=== PATIENT | male | born 1990 | race Caucasian/White ===

== ENCOUNTER 2022-07-06 13:57 | Emergency (ER) | payer SELFPAY ==
--- NOTE | 2022-07-06 14:14 | EDPHYS ---
Physician Documentation [facility] Name: Gregorio Fitzgerald Age: 31 yrs Sex: Male : 1990 Arrival Date: 07/06/2022 Time: 14:00 Bed Waiting Private MD: ED Physician Federico Barker HPI: 07/06 14:10 This 31 yrs old Male presents to ER via Unassigned with complaints of Rash. jl9 14:10 The patient's rash thought to be caused by Patient picked up fiberglass yesterday, jl9 possible allergy. The rash is located on the right arm and left arm. The rash can be described as erythematous, urticarial. Onset: The symptoms/episode began/occurred yesterday. Treatment given at home: OTC lotion/cream. Historical: - Allergies: 14:12 No Known Allergies; kb3 - Home Meds: 14:12 Methadone 100 mg Oral 1 wafer 1 week for opioid dependence [Active]; melatonin 10 mg kb3 oral tab 20 mg nightly [Active]; - PMHx: 14:12 Opiod Dependence; kb3 - PSHx: 14:12 None; kb3 - Immunization history:: Adult Immunizations up to date, Client reports receiving the 2nd dose of the Covid vaccine, Last tetanus immunization: up to date. - Social history:: Smoking status: Patient reports the use of cigarette tobacco products, smokes one-half pack cigarettes per day, Patient/guardian denies using alcohol, street drugs. ROS: 14:11 Constitutional: Negative for fever, chills, and weight loss, Eyes: Negative for injury, jl9 pain, redness, and discharge, ENT: Negative for injury, pain, and discharge, Neck: Negative for injury, pain, and swelling, Cardiovascular: Negative for chest pain, palpitations, and edema, Respiratory: Negative for shortness of breath, cough, wheezing, and pleuritic chest pain, Abdomen/GI: Negative for abdominal pain, nausea, vomiting, diarrhea, and constipation, Back: Negative for injury and pain, : Negative for injury, bleeding, discharge, and swelling, MS/Extremity: Negative for injury and deformity. 14:11 Neuro: Negative for headache, weakness, numbness, tingling, and seizure, Psych: Negative for depression, anxiety, suicide ideation, homicidal ideation, and hallucinations, Allergy/Immunology: Negative for hives, rash, and allergies, Endocrine: Negative for neck swelling, polydipsia, polyuria, polyphagia, and marked weight changes, Hematologic/Lymphatic: Negative for swollen nodes, abnormal bleeding, and unusual bruising. 14:11 Skin: Positive for rash. Exam: 14:11 Constitutional: This is a well developed, well nourished patient who is awake, alert, jl9 and in no acute distress. Head/Face: Normocephalic, atraumatic. Eyes: Pupils equal round and reactive to light, extra-ocular motions intact. Lids and lashes normal. Conjunctiva and sclera are non-icteric and not injected. Cornea within normal limits. Periorbital areas with no swelling, redness, or edema. ENT: Mucous membranes moist. Neck: Trachea midline, no thyromegaly or masses palpated, and no cervical lymphadenopathy. Supple, full range of motion without nuchal rigidity, or vertebral point tenderness. No Meningismus. Chest/axilla: Normal chest wall appearance and motion. Nontender with no deformity. No lesions are appreciated. Cardiovascular: Regular rate and rhythm with a normal S1 and S2. No gallops, murmurs, or rubs. Normal PMI, no JVD. No pulse deficits. Respiratory: Lungs have equal breath sounds bilaterally, clear to auscultation and percussion. No rales, rhonchi or wheezes noted. No increased work of breathing, no retractions or nasal flaring. Abdomen/GI: Soft, non-tender, with normal bowel sounds. No distension or tympany. No guarding or rebound. No evidence of tenderness throughout. Back: No spinal tenderness. No costovertebral tenderness. Full range of motion. 14:11 Skin: Appearance: on the right arm and left arm. 14:12 MS/ Extremity: Pulses equal, no cyanosis. Neurovascular intact. Full, normal range jl9 of motion. Neuro: Awake and alert, GCS 15, oriented to person, place, time, and situation. Cranial nerves II-XII grossly intact. Motor strength 5/5 in all extremities. Sensory grossly intact. Cerebellar exam normal. Normal gait. Psych: Awake, alert, with orientation to person, place and time. Behavior, mood, and affect are within normal limits. Vital Signs: 14:10 BP 135 / 82; Pulse 90; Resp 18; Temp 98.8; Pulse Ox 95% ; Weight 140.61 kg; Height 5 kb3 ft. 11 in. (180.34 cm); Pain 0/10; 14:10 Body Mass Index 43.24 (140.61 kg, 180.34 cm) kb3 MDM: 14:07 Patient medically screened. 9 14:12 Differential diagnosis: impetigo, allergic reaction. Data reviewed: vital signs, nurses jl9 notes. 14:12 Counseling: I had a detailed discussion with the patient and/or guardian regarding: the 9 historical points, exam findings, and any diagnostic results supporting the discharge/admit diagnosis, the need for outpatient follow up, to return to the emergency department if symptoms worsen or persist or if there are any questions or concerns that arise at home. Administered Medications: 14:18 CANCELLED (Duplicate Order): Benadryl (diphenhydrAMINE) 50 mg IVP once jl9 14:25 Drug: Benadryl (diphenhydrAMINE) 50 mg Route: IM; Site: left deltoid; kb3 14:30 Follow up: Response: No adverse reaction kb3 14:25 Not Given (Duplicate Order): Benadryl (diphenhydrAMINE) 50 mg IM once kb3 14:26 Drug: MethylPREDNISolone Sodium Succinate 125 mg Route: IM; Site: right deltoid; kb3 14:30 Follow up: Response: No adverse reaction kb3 Disposition: 16:31 Co-signature as Attending Physician, Federico Barker MD. rn Disposition Summary: 07/06/22 14:13 Discharge Ordered Location: Home jl9 Condition: Stable jl9 Diagnosis - Allergic contact dermatitis due to other agents jl9 Followup: jl9 - With: Private Physician - When: 1 - 2 days - Reason: Recheck today's complaints, Continuance of care, Re-evaluation by your physician Discharge Instructions: - Discharge Summary Sheet jl9 - Rash, Adult, [id number] jl9 - Contact Dermatitis, [id number] jl9 Forms: - Medication Reconciliation Form jl9 - Thank You Letter jl9 - Antibiotic Education jl9 - Prescription Opioid Use jl9 - Work release form kb3 Prescriptions: - Triamcinolone Acetonide 0.5 % Topical Cream - apply 1 application by TOPICAL route 2 times per day As needed; 1 tube; jl9 Refills: 0, Product Selection Permitted - Prednisone 20 mg Oral Tablet - take 2 tablets by ORAL route once daily for 5 days; 10 tablet; Refills: 0, jl9 Product Selection Permitted Signatures: Federico Barker MD MD rn Linares, John jl9 Bhargavi Rizvi RN RN kb3 Corrections: (The following items were deleted from the chart) 14:18 14:10 Benadryl (diphenhydrAMINE) 50 mg IVP once ordered. jl9 jl9
--- NOTE | 2022-07-06 14:14 | ER ---
Nurse's Notes [facility] Name: Gregorio Fitzgerald Age: 31 yrs Sex: Male : 1990 Arrival Date: 07/06/2022 Time: 14:00 Bed Waiting Private MD: Diagnosis: Allergic contact dermatitis due to other agents Presentation: 07/06 14:10 Chief complaint: Patient states: Pt report he came into [employer] yesterday at work kb3 and now has a rash on bilateral forearms. Coronavirus screen: Vaccine status: Patient reports receiving the 2nd dose of the covid vaccine. Client denies travel out of the [place] in the last 14 days. At this time, the client does not indicate any symptoms associated with coronavirus-19. Ebola Screen: Patient negative for fever greater than or equal to 101.5 degrees Fahrenheit, and additional compatible Ebola Virus Disease symptoms Patient denies exposure to infectious person. Patient denies travel to an Ebola-affected area in the 21 days before illness onset. No symptoms or risks identified at this time. Initial Sepsis Screen: Does the patient meet any 2 criteria? No. Patient's initial sepsis screen is negative. Does the patient have a suspected source of infection? No. Patient's initial sepsis screen is negative. Risk Assessment: Do you want to hurt yourself or someone else? Patient reports no desire to harm self or others. Onset of symptoms was July 05, 2022 at 12:00. 14:10 Method Of Arrival: Ambulatory kb3 14:10 Acuity: GERARDO 4 kb3 Triage Assessment: 14:12 General: Appears in no apparent distress. comfortable, Behavior is calm, cooperative. kb3 Pain: Denies pain. Historical: - Allergies: 14:12 No Known Allergies; kb3 - Home Meds: 14:12 Methadone 100 mg Oral 1 wafer 1 week for opioid dependence [Active]; melatonin 10 mg kb3 oral tab 20 mg nightly [Active]; - PMHx: 14:12 Opiod Dependence; kb3 - PSHx: 14:12 None; kb3 - Immunization history:: Adult Immunizations up to date, Client reports receiving the 2nd dose of the Covid vaccine, Last tetanus immunization: up to date. - Social history:: Smoking status: Patient reports the use of cigarette tobacco products, smokes one-half pack cigarettes per day, Patient/guardian denies using alcohol, street drugs. Screenin:10 Abuse screen: Denies threats or abuse. Denies injuries from another. Nutritional kb3 screening: No deficits noted. Tuberculosis screening: No symptoms or risk factors identified. Fall Risk None identified. Assessment: 14:10 General: Pt seen by provider in triage. kb3 Vital Signs: 14:10 BP 135 / 82; Pulse 90; Resp 18; Temp 98.8; Pulse Ox 95% ; Weight 140.61 kg; Height 5 kb3 ft. 11 in. (180.34 cm); Pain 0/10; 14:10 Body Mass Index 43.24 (140.61 kg, 180.34 cm) kb3 ED Course: 14:00 Patient arrived in ED. rg4 14:07 Herman Linda is PHCP. jl9 14:07 Federico Barker MD is Attending Physician. jl9 14:10 Patient has correct armband on for positive identification. kb3 14:10 No provider procedures requiring assistance completed. Patient did not have IV access kb3 during this emergency room visit. 14:12 Triage completed. kb3 14:12 Arm band placed on right wrist. kb3 14:15 Bhargavi Rizvi, RN is Primary Nurse. kb3 Administered Medications: 14:18 CANCELLED (Duplicate Order): Benadryl (diphenhydrAMINE) 50 mg IVP once jl9 14:25 Drug: Benadryl (diphenhydrAMINE) 50 mg Route: IM; Site: left deltoid; kb3 14:30 Follow up: Response: No adverse reaction kb3 14:25 Not Given (Duplicate Order): Benadryl (diphenhydrAMINE) 50 mg IM once kb3 14:26 Drug: MethylPREDNISolone Sodium Succinate 125 mg Route: IM; Site: right deltoid; kb3 14:30 Follow up: Response: No adverse reaction kb3 Medication: 14:10 VIS not applicable for this client. kb3 Outcome: 14:13 Discharge ordered by . jl9 14:30 Patient left the ED. kb3 Signatures: Janelle Gaming rgHerman Dorantes jl9 Bhargavi Rizvi, RN RN kb3
[2022-07-06] MEDS ORDERED: DIPHENHYDRAMINE 50 MG/ML VIAL ONE (14:27)
[2022-07-06] MEDS ORDERED: METHYLPREDNISOLONE 125 MG INJ ONE (14:27)
[2022-07-06 14:52] VITALS: BP 135/82; TEMP 98.8; O2SAT 95
== END 2022-07-06 14:30 | disposition home or self-care (01) ==
LOC: ER 13:57
DX: L23.89 Allergic contact dermatitis due to other agents (principal); F17.210 Nicotine dependence, cigarettes, uncomplicated
CPT/HCPCS: 96372; 99282; J1200; J2930

== ENCOUNTER 2022-07-10 08:09 | Emergency (ER) | payer SELFPAY ==
--- OUTSIDE RECORDS SUMMARY | 2022-07-10 08:18 | XMS REPORT | Continuity of Care Document ---
:1990 Author Organization [facility] t Address [address] [place] [address] Care Team Providers Name Role Phone Mary Jane Sevilla Attending Clinician Unavailable Problems This patient has no known problems. Allergies, Adverse Reactions, Alerts This patient has no known allergies or adverse reactions. Medications This patient has no known medications. Procedures This patient has no known procedures. Encounters Start End Encounter Admission Attending Care Care Encounter Source Date/Time Date/Time Type Type Clinicians Facility Department ID 2022-01-12 Outpatient Di, [facility] [id number] Common 16:21:01 Mary Jane [id number] [facility] 2021-12-10 Outpatient Di, [facility] [id number] Common 14:00:29 Mary Jane [id number] [facility] 2021-12-10 Outpatient Di, [facility] [id number] Common 12:11:15 Mary Jane [id number] [facility] 2021-12-10 Outpatient Di, [facility] [id number] Common 12:11:00 Mary Jane [id number] [facility] 2021-12-10 Outpatient [facility] [id number] Common 11:32:48 [id number] [facility] Results This patient has no known results.
--- NOTE | 2022-07-10 09:00 | ER ---
Nurse's Notes [facility] Name: Gregorio Fitzgerald Age: 31 yrs Sex: Male : 1990 Arrival Date: 07/10/2022 Time: 08:34 Bed 11 Private MD: Diagnosis: Blister (nonthermal) of foot-bilateral Presentation: 07/10 08:39 Chief complaint: Patient states: wore a new pair of boots yesterday at work, walked 9 iw hours, now he has blisters on bottom of feet , was seen limping at work and was sent for clearance. Coronavirus screen: At this time, the client does not indicate any symptoms associated with coronavirus-19. Ebola Screen: Patient negative for fever greater than or equal to 101.5 degrees Fahrenheit, and additional compatible Ebola Virus Disease symptoms Patient denies exposure to infectious person. Patient denies travel to an Ebola-affected area in the 21 days before illness onset. No symptoms or risks identified at this time. Initial Sepsis Screen: Does the patient meet any 2 criteria? No. Patient's initial sepsis screen is negative. Does the patient have a suspected source of infection? No. Patient's initial sepsis screen is negative. Risk Assessment: Do you want to hurt yourself or someone else? Patient reports no desire to harm self or others. Onset of symptoms was July 10, 2022. 08:39 Method Of Arrival: Ambulatory iw 08:39 Acuity: GERARDO 4 iw Historical: - Allergies: 08:41 No Known Allergies; iw - Home Meds: 08:41 Methadone 100 mg Oral 1 wafer 1 week for Opioid Dependence [Active]; melatonin 10 mg iw Oral tab 20 mg nightly [Active]; - PMHx: 08:41 opiod dependence; iw - PSHx: 08:41 None; iw Vital Signs: 08:39 BP 129 / 83; Pulse 105; Resp 18; Temp 97.9; Pulse Ox 96% on R/A; iw ED Course: 08:34 Patient arrived in ED. as 08:36 Gomez Galan PA is PHCP. cp 08:36 Cale Harrison MD is Attending Physician. cp 08:41 Triage completed. iw 08:41 Arm band placed on. iw 08:46 Rachele Servin, AYAZ is Primary Nurse. iw Administered Medications: No medications were administered Outcome: 08:59 Discharge ordered by . cp 09:33 Patient left the ED. iw Signatures: Bridget Sprague Irene, RN RN iw Gomez Galan PA PA cp
--- NOTE | 2022-07-10 09:00 | EDPHYS ---
Physician Documentation [facility] Name: Gregorio Fitzgerald Age: 31 yrs Sex: Male : 1990 Arrival Date: 07/10/2022 Time: 08:34 Bed 11 Private MD: ED Physician Cale Harrison HPI: 07/10 08:54 This 31 yrs old Male presents to ER via Ambulatory with complaints of Foot Pain - cp blisters. 08:54 The patient presents with tenderness, skin blisters. The complaints affect the right cp foot and left foot. Context: resulted from walking previous day, the patient can fully bear weight, the patient is able to ambulate, without difficulty. Onset: The symptoms/episode began/occurred yesterday. Associated signs and symptoms: The patient has no apparent associated signs or symptoms. Treatment prior to arrival includes: no previous treatment. Historical: - Allergies: 08:41 No Known Allergies; iw - Home Meds: 08:41 Methadone 100 mg Oral 1 wafer 1 week for Opioid Dependence [Active]; melatonin 10 mg iw Oral tab 20 mg nightly [Active]; - PMHx: 08:41 opiod dependence; iw - PSHx: 08:41 None; iw ROS: 08:55 Constitutional: Negative for fever. cp 08:55 Cardiovascular: Negative for chest pain. 08:55 Respiratory: Negative for cough, shortness of breath, wheezing. 08:55 Abdomen/GI: Negative for abdominal pain, nausea, vomiting, and diarrhea. 08:55 Skin: Positive for of the right foot and left foot, skin blisters. 08:55 All other systems are negative. Exam: 08:56 Constitutional: The patient appears in no acute distress, alert, awake, non-toxic, well cp developed, well nourished, obese. 08:56 Cardiovascular: Rate: tachycardic. 08:56 Respiratory: the patient does not display signs of respiratory distress, Respirations: normal, no use of accessory muscles, no retractions. 08:56 Skin: injury, multiple ruptured bullae noted to feet. Vital Signs: 08:39 BP 129 / 83; Pulse 105; Resp 18; Temp 97.9; Pulse Ox 96% on R/A; iw MDM: 08:42 Patient medically screened. cp 08:45 Differential diagnosis: cellulitis, abscess. cp 08:59 Data reviewed: vital signs, nurses notes. cp 08:59 Counseling: I had a detailed discussion with the patient and/or guardian regarding: the cp historical points, exam findings, and any diagnostic results supporting the discharge/admit diagnosis, the need for outpatient follow up, a family practitioner, to return to the emergency department if symptoms worsen or persist or if there are any questions or concerns that arise at home. 07/10 08:58 Order name: Wound dressing: bacitracin cp Administered Medications: No medications were administered Disposition: 11:18 Co-signature as Attending Physician, Cale Harrison MD I agree with the assessment and kdr plan of care. Disposition Summary: 07/10/22 08:59 Discharge Ordered Location: Home cp Problem: new cp Symptoms: have improved cp Condition: Stable cp Diagnosis - Blister (nonthermal) of foot - bilateral cp Followup: cp - With: Private Physician - When: 2 - 3 days - Reason: Recheck today's complaints Discharge Instructions: - Discharge Summary Sheet cp - Blisters, Adult cp - Form - Excuse from Work, School, or Physical Activity cp Forms: - Medication Reconciliation Form cp - Thank You Letter cp - Antibiotic Education cp - Prescription Opioid Use cp - Work release form eb Prescriptions: - mupirocin 2 % Topical ointment - apply 1 application by TOPICAL route 3 times per day for 8-10 days; 45 gram; cp Refills: 0, Product Selection Permitted Signatures: Cale Harrison MD MD kdr Williams, Irene, AYAZ RN Gomez Rojas PA PA cp
[2022-07-10 10:24] VITALS: BP 129/83; TEMP 97.9; O2SAT 96
[2022-07-10] MEDS ORDERED: KETOROLAC 30 MG/ML INJ ONE (11:25)
== END 2022-07-10 09:33 | disposition home or self-care (01) ==
LOC: ER 08:09
DX: S90.822A Blister (nonthermal), left foot, initial encounter (principal); S90.821A Blister (nonthermal), right foot, initial encounter
CPT/HCPCS: 99281